=== PATIENT | female | born 1950 | race Caucasian/White ===

== ENCOUNTER → 2016-09-14 | Outpatient (CLI) | payer MEDICARE, BC, OTHER ==
[~2016-09-14] MED LIST: ACLIDINIUM IN; ALBUTEROL MININEB NEB; ALBUTEROL17 GM INH; ALBUTEROL17 GM NEB; ALBUTEROL2.5 MG/0.5 INH; AMIODARONE PO; ASPIRIN; ATENOLOL; ATENOLOL PO; AUGMENTIN875 M1 DOB; AZITHROMYCIN250 MG PO; BACLOFEN10 MG PO; BACTROBAN22 GM TP; BONIVA150 MG PO; CALCIUM 500 + D1 TAB PO; CARAFATE1 G PO; CLOTRIMAZOLE-BE45 GM TP; COMBIVENT INH14.7 G1 IH; COMBIVENT RESPIM4 GM IH; COUMADIN PO; COUMADIN3 MG PO; COUMADIN5 MG PO; COUMADIN7.5 MG PO; COZAAR PO; CRESTOR; DESYREL50 MG PO; DIAZEPAM; DIAZEPAM PO; DIAZEPAM2 MG PO; DILAUDID4 M1 PO; DILAUDID4 MG PO; DOXYCYCLINE PO; DULCOLAX5 MG PO; DUONEBS; EC-NAPROSYN500 MG PO; HOME NEBULIZER; HYDROCODON-ACE1 EAC5 PO; HYDROMORPHONE HC4 MG PO; IPRAT-ALBUT 0.5-3 ML INH; ISOSORBIDE DINI30 MG PO; ISOSORBIDE MONO30 M1 PO; K-DUR20 ME1 DOB; K-DUR20 ME1 PO; KCL PO; LASIX; LORTAB 10/500 T1 TAB PO; LOTRISONE CREAM45 GM TOP; METOPROLOL SUCC50 MG PO; METOPROLOL TAR25 MG PO; MS CONTIN; MUCINEX DM1 TAB.SR . PO; MYCELEX10 MG MT; NAPROXEN PO; NASONEX17 GM; NEURONTIN100 MG PO; NICOTINE TRANSD21 MG EXT; NILSTAT PO; NITROGYLCERIN; OMNICEF300 MG PO; OXYCODONE-ACET1 EACH PO; OXYCONTIN PO; OYSTER CALCIUM500 MG PO; PACERONE PO; PANTOPRAZOLE SO40 MG PO; PHENERGAN PO; PRAVASTATIN SOD40 MG PO; PREDNISONE PO; PREDNISONE10 MG/DOSE PO; PREVACID PO; PROTONIX PO; RESTORIL15 MG PO; SANTYL15 G1 TP; SENNA LAXATIVE1 TAB PO; SENNA S TABLET1 TAB; SEROQUEL PO; SEROQUEL50 MG PO; SIMVASTATIN10 MG PO; SKELAXIN; SYMBICORT INH; TUDORZA PRESS400 MCG INH; VALIUM10 MG PO; WARFARIN SODIUM6 M1 PO; XANAX2 MG PO; XOPENEX HFA15 GM NEB; XOPENEX0.31 MG/3 IH; XOPENEX1.25 MG/0. NEB; ZITHROMAX500 MG PO; [UNRECOGNIZED DRUG - REMARK]
--- NOTE | ~2016-09-14 | CR100 ---
[facility] A Service of [facility] & [facility] RADIOLOGY TEXT RESULTS PATIENT: VIRGIL SMILEY LOCATION: [facility] : 52 UNIT #: [id number] AGE: [address]: Amari Padron MD SEX: F ORDER DR: [id number] [facility] [address] [place], [place] [address] [id number] O MR#: [id number] Acc #: [id number] NAME: VIRGIL SMILEY : 1950 SEX: F STUDY DATE/TIME: 09/14/2016 16:11 UNIT: [facility] ROOM: STUDY DESCRIPTION: CR Facial Bones < 3 Views Attending Physician: Amari Padron M.D. Referring Physician: Amari Padron M.D. Ordering Physician: Amari Padron M.D. Primary Care Physician: Zain Cano D.O. MEDICAL IMAGING REPORT This report is preliminary unless electronic signature is present EXAM Facial bone series INDICATION Facial swelling after trauma today. FINDINGS This exam consists of 4 images including an AP, lateral, Bhardwaj and Abad view. No facial bone fracture is visible. The sinuses are clear. IMPRESSION Normal facial bone series. Dictated by... Rafat Galvez M.D. THIS IS AN ELECTRONICALLY VERIFIED REPORT Rafat Galvez M.D. at 09/15/2016 11:26 AM MERCEDEZ/nazanin TD: 09/15/2016 11:22 JOB #: [id number] MEDICAL IMAGING REPORT COPY
--- NOTE | ~2016-09-14 | CR229 ---
[facility] A Service of [facility] & [facility] RADIOLOGY TEXT RESULTS PATIENT: VIRGIL SMILEY LOCATION: [facility] : 52 UNIT #: [id number] AGE: [address]: Amari Padron MD SEX: F ORDER DR: [id number] [facility] [address] [place], [place] [address] [id number] O MR#: [id number] Acc #: [id number] NAME: VIRGIL SMILEY : 1950 SEX: F STUDY DATE/TIME: 09/14/2016 16:11 UNIT: [facility] ROOM: STUDY DESCRIPTION: CR Shoulder Min 2 View Lt Attending Physician: Amari Padron M.D. Referring Physician: Amari Padron M.D. Ordering Physician: Amari aPdron M.D. Primary Care Physician: Zain Cano D.O. MEDICAL IMAGING REPORT This report is preliminary unless electronic signature is present EXAM Left shoulder. INDICATION Shoulder pain after fall. The patient fell today. FINDINGS AP, internal and external views and a wide view of the shoulder were obtained. There is no fracture or dislocation found. Bones are normal. IMPRESSION Normal left shoulder. Dictated by... Rafat Galvez M.D. THIS IS AN ELECTRONICALLY VERIFIED REPORT Rafat Galvez M.D. at 09/15/2016 11:26 AM MERCEDEZ/nitza TD: 09/15/2016 11:20 JOB #: [id number] MEDICAL IMAGING REPORT COPY
== END | disposition home or self-care (01) ==
LOC: CRAD 15:22
DX: J43.9 Emphysema, unspecified (principal); J84.10 Pulmonary fibrosis, unspecified; R22.0 Localized swelling, mass and lump, head; M25.512 Pain in left shoulder
CPT/HCPCS: 70140; 73030